=== PATIENT | male | born 1985 ===

== ENCOUNTER 2021-04-10 16:26 | Emergency (ER) | payer OTHER ==
[~2021-04-10] VITALS: Ht 188 cm; Wt 133.9 kg
[2021-04-10] MEDS ORDERED: HYDROmorphone 1 MG/ML, 1ML INJ IV ONE ×2 (17:30→20:00)
[2021-04-10] MEDS ORDERED: SODIUM CHLORIDE 0.9% 1,000 ML IV ONE (17:30)
[2021-04-10] MEDS ORDERED: ONDANSETRON 2MG/ML, 2ML IVPush ONE ×2 (17:30→20:00)
[2021-04-10] MEDS ORDERED: SODIUM CHLORIDE FLUSH 10ML SYR IVF ONE (17:30)
[2021-04-10] MEDS ORDERED: KETOROLAC 30 MG/1 ML IVPush ONE ×2 (17:30→20:00)
[2021-04-10 17:48] LABS: BASOPHILS % (AUTO) 1 % (0-1); EOSINOPHILS % (AUTO) 2 % (1-7); LYMPHOCYTES % (AUTO) 20 % (22-44); MEAN CORPUSCULAR HEMOGLOBIN 30.7 pg (27.5-34.5); MEAN CORPUSCULAR HGB CONC 35.5 g/dL (33.2-36.2); MEAN PLATELET VOLUME 7.3 fL (7.4-10.4); MONOCYTES % (AUTO) 8 % (2-9); NEUTROPHILS % (AUTO) 69 % (42-75); PLATELET COUNT 225 x10^3/uL (130-400); RED BLOOD COUNT 5.06 x10^6/uL (4.38-5.82); RED CELL DISTRIBUTION WIDTH 12.9 % (9.4-14.8)
[2021-04-10 17:52] LABS: ALANINE AMINOTRANSFERASE 37 U/L (12-78); ALBUMIN 3.5 g/dL (3.4-5.0); ANION GAP 7 mmol/L (5-15); CALCIUM 8.8 mg/dL (8.5-10.1); CHLORIDE 110 mmol/L (98-107)
[2021-04-10 17:55] LABS: ALKALINE PHOSPHATASE 79 U/L (45-117); BILIRUBIN,TOTAL 0.4 mg/dL (0.2-1.0); CREATININE 1.27 mg/dL (0.7-1.3); TOTAL PROTEIN 7.6 g/dL (6.4-8.2)
--- NOTE | 2021-04-10 18:14 | NUR ---
UA sent from triage
[2021-04-10 18:34] LABS: MICROSCOPIC NOT IND
[2021-04-10] MEDS ORDERED: KETOROLAC 30 MG/1 ML ONE (19:52)
[2021-04-10] MEDS ORDERED: HYDROmorphone 2 MG/ML, 1ML ONE (19:53)
[2021-04-10] MEDS ORDERED: ONDANSETRON 2MG/ML, 2ML ONE (19:53)
[2021-04-10 21:27] VITALS: BP 135/86
== END 2021-04-10 21:30 | disposition home or self-care (01) ==
LOC: ED 20:53
DX: N20.0 Calculus of kidney (principal)
CPT/HCPCS: 36415; 74176; 80053; 81003; 85025; 96361; 96374; 96375; 99284; J1170; J1885; J2405; J7030